=== PATIENT | female | born 1975 ===

== ENCOUNTER 2022-03-08 06:54 | Day surgery (SDC) | payer OTHER ==
[~2022-03-08] VITALS: Ht 175.3 cm; Wt 104.3 kg
[~2022-03-08 06:54] MED LIST: COZAAR50 MG PO; GLUMETZA500 MG PO; HYDROCHLOROTHIA25 MG PO; NORVASC5 MG PO
== END 2022-03-08 19:15 | disposition home or self-care (01) ==
LOC: CIR.AMB 06:54
PROVIDERS: ATTEND Specialist
DX: N87.9 Dysplasia of cervix uteri, unspecified (principal); Z20.822 Contact with and (suspected) exposure to COVID-19; Z88.6 Allergy status to analgesic agent; E11.9 Type 2 diabetes mellitus without complications; Z79.84 Long term (current) use of oral hypoglycemic drugs